=== PATIENT | male | born 1975 | race Caucasian/White ===

== ENCOUNTER 2022-06-06 15:56 | Outpatient (CLI) | payer OTHER, SELFPAY ==
[2022-06-06 18:03] LABS: Cholesterol* 183 mg/dL (90-199); Glucose* 86 mg/dL (60-115); HDL Cholesterol* 38 mg/dL (>=40); LDL Cholesterol Calculated 89 mg/dL (<100); Triglycerides* 280 mg/dL (40-149)
== END 2022-06-06 15:57 | disposition home or self-care (01) ==
LOC: NFLDREF 15:57
PROVIDERS: PCP Family Medicine; Visit Provider Family Medicine
DX: Z13.1 Encounter for screening for diabetes mellitus (principal); Z13.6 Encounter for screening for cardiovascular disorders
CPT/HCPCS: 80061; 82947

== ENCOUNTER 2022-06-15 08:29 | Outpatient (CLI) | payer OTHER, SELFPAY ==
[2022-06-15 11:23] LABS: Chloride* 105 mmol/L (96-114); Potassium* 4.5 mmol/L (3.6-5.1); Sodium* 141 mmol/L (135-149)
[2022-06-15 11:25] LABS: Estimated Glomerular Filt Rate 93 ml/min
[2022-06-15 11:26] LABS: Alanine Aminotransferase* 27 U/L (4-50); Alkaline Phosphatase* 86 U/L (40-150); Aspartate Amino Transferase* 28 U/L (12-35); Blood Urea Nitrogen* 15 mg/dL (5-24); Calcium* 9.6 mg/dL (8.4-10.6); Carbon Dioxide* 27 mmol/L (20-32); Glucose* 92 mg/dL (60-115); Total Protein* 7.5 g/dL (6.0-8.3)
== END 2022-06-15 08:30 | disposition home or self-care (01) ==
PROVIDERS: PCP Family Medicine; Visit Provider Family Medicine
DX: I10 Essential (primary) hypertension (principal)
CPT/HCPCS: 80053; 80061

== ENCOUNTER 2022-08-22 07:20 | Outpatient (CLI) | payer OTHER, SELFPAY | END 2022-08-22 07:21 | disposition home or self-care (01) | PROVIDERS: PCP Family Medicine; Visit Provider Surgery | DX: Z12.11 Encounter for screening for malignant neoplasm of colon (principal); K62.89 Other specified diseases of anus and rectum; K64.4 Residual hemorrhoidal skin tags; K57.30 Diverticulosis of large intestine without perforation or abscess without bleeding | CPT/HCPCS: 45380; 88304; 99153; J2250; J3010 ==